=== PATIENT | male | born 1960 | race Caucasian/White ===

== ENCOUNTER 2017-05-11 09:45 | Day surgery (SDC) | payer BC ==
[~2017-05-11] VITALS: Ht 170.2 cm; Wt 68.0 kg
--- NOTE | ~2017-05-11 | EGD ---
EGD REPORT [facility] [address] [place] [address] NAME: ARIES WILLIAMSON : [birth year] STATUS : [facility]#: [id number] AGE: 56 ADM/REG DATE : 05/11/17 MR#: [id number] REPORT SERV DATE: 05/15/17 DICTATED BY: STEPHANIE ANGLIN DATE: 05/15/17 REPORT STATUS : Draft TRANSCRIBED BY: [facility] DATE: 05/15/17 End[facility] Center Patient Name: Aries Williamson Date of : 1960 Attending MD: STEPHANIE ANGLIN MD Procedure Date No Time: 05/11/2017 Procedure: Colonoscopy Indications: Screening for colorectal malignant neoplasm Referring MD: YESENIA DARNELL Medicines: as per anesthesia Complications: No immediate complications. Procedure: Pre-Anesthesia Assessment: - ASA Grade Assessment: II - A patient with mild systemic disease. After I obtained informed consent, the scope was passed under direct vision. Throughout the procedure, the patient's blood pressure, pulse, and oxygen saturations were monitored continuously. The PCF [id number] was introduced through the anus and advanced to the cecum, identified by appendiceal orifice and ileocecal valve. The colonoscopy was performed without difficulty. The patient tolerated the procedure. The quality of the bowel preparation was adequate to identify polyps. Findings: The perianal and digital rectal examinations were normal. Internal hemorrhoids were found during endoscopy and were mild. Impression: - Internal hemorrhoids. Recommendation: - Repeat colonoscopy in 10 years for surveillance. Procedure Code(s): --- Professional --- 27630, Colonoscopy, flexible, proximal to splenic flexure; diagnostic, with or without collection of specimen(s) by brushing or washing, with or without colon decompression (separate procedure) Diagnosis Code(s): --- Professional --- K64.8, Other hemorrhoids Z12.11, Encounter for screening for malignant neoplasm of colon CPT copyright 2013 [employer]. All rights reserved. EGD REPORT [facility] [address] [place], [place] [address] [facility] [place] [address] NAME: ARIES WILLIAMSON : [birth year] STATUS : [facility]#: [id number] AGE: 56 ADM/REG DATE : 05/11/17 MR#: [id number] REPORT SERV DATE: 05/15/17 DICTATED BY: STEPHANIE ANGLIN DATE: 05/15/17 REPORT STATUS : Draft TRANSCRIBED BY: [employer] DATE: 05/15/17 The codes documented in this report are preliminary and upon long term care pharmacist review may be revised to meet current compliance requirements. STEPHANIE ANGLIN MD 05/11/2017 1:36 PM This report has been signed electronically. Number of Addenda: 0 Note Initiated On: 05/11/2017 12:49 PM Scope Withdrawal Time 0 hours 7 minutes 32 seconds [id number] [facility], [facility] [address]
[~2017-05-11 09:45] MED LIST: MULTI-VIT HP PO; NORV10 PO; PRILOSEC40 MG PO; PRIN20 PO; ZOCOR10 PO
== END 2017-05-11 23:59 | disposition home or self-care (01) ==
LOC: DMU 09:45
PROVIDERS: Internal Medicine Gastroenterology
PROC: 0DJD8ZZ Inspection of Lower Intestinal Tract, Via Natural or Artificial Opening Endoscopic (ICD-10-PCS; principal; 2017-05-11 11:30)
DX: Z12.11 Encounter for screening for malignant neoplasm of colon (principal); K64.8 Other hemorrhoids; K21.9 Gastro-esophageal reflux disease without esophagitis; I10 Essential (primary) hypertension; E78.00 Pure hypercholesterolemia, unspecified; Z90.89 Acquired absence of other organs; Z90.49 Acquired absence of other specified parts of digestive tract; Z79.899 Other long term (current) drug therapy